=== PATIENT | male | born 1985 | race Caucasian/White ===

== ENCOUNTER 2017-06-19 10:28 | Emergency (ER) | payer BC ==
[2017-06-19] MEDS ORDERED: Ketorolac 60 MG/2 ML SDV IM ONE (10:51)
--- NOTE | 2017-06-19 10:54 | EDM.PDOC ---
ED HPI GENERAL MEDICAL PROBLEM - General Chief Complaint: General Stated Complaint: LEFT SIDE PAIN Time Seen by Provider: 06/19/17 10:37 - History of Present Illness INITIAL COMMENTS - FREE TEXT/NARRATIVE: HISTORY AND PHYSICAL: History of present illness: The patient is a 32-year-old male who presents with complaints of left-sided rib /chest wall pain after he fell yesterday impacting a part of his truck bed yesterday. He did not hit his head pass out or black out and has no head neck or back pain and no extremity complaints. He has no abdominal pain nausea or vomiting and has been using ibuprofen 400 mg for the pain which is not working. He has discomfort with certain movements but does not feel short of breath. He has not noticed any bruising in the area but there is tenderness in the region of his lateral left rib cage Review of systems: As per history of present illness and below otherwise all systems reviewed and negative. Past medical history: As per history of present illness and as reviewed below otherwise noncontributory. Surgical history: As per history of present illness and as reviewed below otherwise noncontributory. Social history: No reported history of drug or alcohol abuse. Family history: As per history of present illness and as reviewed below otherwise noncontributory. Physical exam: Gen.: Well-developed well-nourished male who is nontoxic and vital signs them and reviewed by me HEENT: Atraumatic, normocephalic, negative for conjunctival pallor or scleral icterus, mucous membranes moist, throat clear, neck supple, nontender, trachea midline. Lungs: Clear to auscultation, breath sounds equal bilaterally, chest with tenderness to palpation at the mid axillary line on the left in the mid rib cage area without crepitus defects deformities ecchymosis or soft tissue swelling. Heart: S1S2, regular rate and rhythm on my evaluation Abdomen: Soft, nondistended, nontender. NABS Negative for costovertebral tenderness. Pelvis: Stable nontender. Genitourinary: Deferred. Rectal: Deferred. Extremities: Atraumatic, full range of motion without defects or deficits Neurovascular unremarkable. Neuro: Awake, alert, oriented. Cranial nerves II through XII unremarkable. Cerebellum unremarkable. Motor and sensory unremarkable throughout. Exam nonfocal. Diagnostics: Left ribs with chest x-ray Therapeutics: Toradol Impression: Left rib/chest wall injury, left eighth rib fracture Definitive disposition and diagnosis as appropriate pending reevaluation and review of above. left rib Pain Score (Numeric/FACES): 3 - Related Data Allergies Allergy/AdvReac Type Severity Reaction Status Date / Time amoxicillin Allergy Hives Verified 06/19/17 10:36 Home Meds: Home Meds . [No Known Home Meds] 06/19/17 [History] Past Medical History - Infectious Disease History Infectious Disease History: Reports: Chicken Pox - Past Surgical History Musculoskeletal Surgical History: Reports: Other (See Below) Other Musculoskeletal Surgeries/Procedures:: knee surgery Social & Family History - Family History Family Medical History: Noncontributory - Tobacco Use Smoking Status *Q: Never Smoker - Caffeine Use Caffeine Use: Reports: Coffee - Alcohol Use Days Per Week of Alcohol Use: 5 Number of Drinks Per Day: 2 Total Drinks Per Week: 10 - Recreational Drug Use Recreational Drug Use: No ED ROS GENERAL - Review of Systems Review Of Systems: ROS reveals no pertinent complaints other than HPI. ED EXAM, GENERAL - Physical Exam Exam: See Below (See dictation) Course - Vital Signs Last Recorded V/S: Last Vital Signs Temp 36.5 C 06/19/17 10:37 Pulse 82 06/19/17 10:37 Resp 18 06/19/17 10:37 BP 148/87 H 06/19/17 10:37 Pulse Ox 97 06/19/17 10:37 - Orders/Labs/Meds Meds: Medications Discontinued Medications Generic Name Dose Route Start Last Admin Trade Name Freq PRN Reason Stop Dose Admin Ketorolac Tromethamine 60 mg 06/19/17 10:51 06/19/17 11:01 Toradol IM 06/19/17 10:52 60 mg ONETIME ONE Administration Departure - Departure Time of Disposition: 12:59 Disposition: Home, Self-Care 01 Condition: Good Clinical Impression: Rib fracture Qualifiers: Encounter type: initial encounter Rib fracture type: single rib Fracture type: closed Laterality: left Qualified Code(s): S22.32XA - Fracture of one rib, left side, initial encounter for closed fracture - Discharge Information Referrals: PCP,None [Primary Care Provider] - Forms: ED Department Discharge Additional Instructions: The following information is given to patients seen in the emergency department who are being discharged to home. This information is to outline your options for follow-up care. We provide all patients seen in our emergency department with a follow-up referral. The need for follow-up, as well as the timing and circumstances, are variable depending upon the specifics of your emergency department visit. If you don't have a primary care physician on staff, we will provide you with a referral. We always advise you to contact your personal physician following an emergency department visit to inform them of the circumstance of the visit and for follow-up with them and/or the need for any referrals to a consulting specialist. The emergency department will also refer you to a specialist when appropriate. This referral assures that you have the opportunity for followup care with a specialist. All of these measure are taken in an effort to provide you with optimal care, which includes your followup. Under all circumstances we always encourage you to contact your private physician who remains a resource for coordinating your care. When calling for followup care, please make the office aware that this follow-up is from your recent emergency room visit. If for any reason you are refused follow-up, please contact the [facility] emergency department at and ask to speak to the emergency department charge nurse. [facility] Primary care- [place] [address] Use ice or heat to areas for comfort and take [id number] ibuprofen, 600- 800 mg every 6-8 hours. Please take stronger pain medications, [place], they were prescribed at sleep times and please call and follow-up in our clinic. Return to ER as needed and as discussed. Expect pain over the next few days which will lessen in the next few weeks. 2 all activities as tolerated.
--- NOTE | 2017-06-19 12:49 | CR ---
EXAMINATION: PA chest and left ribs HISTORY: Trauma. FINDINGS: The trachea is midline. The cardiomediastinal silhouette is within normal limits. No pulmonary infilt rates, effusions or pneumothorax. Possible nondisplaced left posterior lateral history of fracture. IMPRESSION: 1. No acute cardiopulmonary process. 2. Possible nondisplaced left eighth rib fracture.
== END 2017-06-19 13:13 | disposition home or self-care (01) ==
LOC: MW.ED 10:28
DX: S22.32XA Fracture of one rib, left side, initial encounter for closed fracture (principal); Z88.1 Allergy status to other antibiotic agents; W19.XXXA Unspecified fall, initial encounter
CPT/HCPCS: 71101; 96372; 99283; J1885; 99284